=== PATIENT | female | born 1990 | race Caucasian/White ===

== ENCOUNTER 2025-03-11 14:42 | Emergency (ER) | payer BC, SELFPAY ==
[2025-03-11 14:43] VITALS: BMI 28.1
[2025-03-11 14:51] VITALS: BP 104/66; PULSE 74; RESP 18; TEMP 37.2; O2SAT 97
--- NOTE | 2025-03-11 14:57 | XR_ITS ---
Examination: CT brain head without contrast. 2-D sagittal coronal reconstructions Date and time of exam:March 11, 2025 1516 hours INDICATIONS: Facial paresthesias and numbness today CTDI: vol (mGy):50.7 DLP: (mGycm):982 Technique: Multiple CT axial sections of the brain have been obtained, 5 mm slice thickness. Contrast has not been administered. 2-D sagittal, coronal reconstructions have been obtained Low dose protocols were performed. One or more of the following dose reduction techniques were used; automated exposure control, adjustment of the mA and/or KV according to patient size, use of iterative reconstruction technique. Findings: No significant ventricular enlargement. Intra-axial or extra-axial hemorrhage density is not seen. No mass effect or midline shift Basal cisterns are not remarkable. Fourth ventricle is midline. Cranial vault intact. Impression: Negative for acute hemorrhage, mass effect or midline shift As clinically warranted, brain MRI without contrast follow-up would best assess for demyelinating disease, acute ischemic change
--- NOTE | 2025-03-11 14:58 | PD.EDNEURO ---
Neuro Symptoms Deficit-RME/HPI General Chief Complaint: Neuro Symptoms/Deficit Stated Complaint: LEFT SIDE OF FACE NUMBNESS AND PAIN AT 1045 Time Seen by Provider: 03/11/25 14:56 Source: patient Arrival date/time: 03/11/25 14:42 Limitations: no limitations RME / HPI RME / HPI Narrative: Patient is a 34-year-old female with her today stating she developed lip numbness and tingling mostly all along the left side. She states this has happened to her before when she consumes blueberries but has not had any blueberries recently. She denies any chronic medical illness including no diabetes, hypertension, thyroid disorder. Denies any falls or injuries. She has no difficulty with mentation, vision changes, and no dysphagia. She has no unilateral weakness in her extremities. No distal paresthesias. She states her symptoms started at 1045 this morning. She has no other acute complaints. Related Data Previous Rx's ?Medication ?Instructions ?Recorded prednisone 50 mg tablet 50 mg PO QDAY 5 days #5 tabs 03/11/25 valacyclovir 1 gram tablet 1,000 mg PO Q8H #20 tabs 03/11/25 (Valtrex) Allergies Allergy/AdvReac Type Severity Reaction Status Date / Time No Known Allergies Allergy Verified 03/11/25 14:45 Review of Systems Review of Systems Systems Reviewed: All systems reviewed, normal except as documented ED Exam General Limitations: Present no limitations General appearance: Present alert and in no apparent distress Head Head exam: Present atraumatic Eye Eye exam: Present normal appearance, PERRL and EOMI ENT ENT exam: Present normal exam, normal oropharynx and mucous membranes moist Neck Neck exam: Present normal inspection, full ROM and trachea midline Chest Chest inspection: Present normal inspection and symmetric chest wall rise Respiratory Respiratory exam: Present normal lung sounds bilaterally Cardiovascular Cardiovascular exam: Present regular rate, normal rhythm and normal heart sounds Abdominal Exam Abdominal exam: Present soft and normal bowel sounds Extremities Exam Extremities exam: Present normal inspection and full ROM Back Exam Back exam: Present normal inspection and full ROM Neurological Exam Neurological exam: Present alert, oriented X3 and CN II-XII intact Psychiatric Psychiatric exam: Present normal affect and normal mood Skin Skin exam: Present warm, dry, intact and normal color Course Quality Measures none Orders Category Date Time Status CT head/brain wo con Stat Exams 03/11/25 14:57 Completed CBC Stat Lab 03/11/25 15:10 Completed CMP [Comprehensive Metabolic Panel] Stat Lab 03/11/25 15:10 Completed HCG,Qualitative Serum Stat Lab 03/11/25 15:10 Completed Acyclovir [Zovirax] Med 03/11/25 14:57 Discontinued 800 mg PO X1 ONE predniSONE Med 03/11/25 14:57 Discontinued 50 mg PO X1 ONE Vital Signs Vital signs: Vital Signs Temperature 99 F 03/11/25 14:51 Pulse Rate 74 03/11/25 14:51 Respiratory Rate 18 03/11/25 14:51 Blood Pressure 104/66 03/11/25 14:51 Pulse Oximetry (%) 97 03/11/25 14:51 Oxygen Delivery Method Room Air 03/11/25 14:51 Neuro Symptoms / Deficit MDM Narrative MDM Narrative:: Patient is a 34-year-old female with her today stating she developed lip numbness and tingling mostly all along the left side. She states this has happened to her before when she consumes blueberries but has not had any blueberries recently. She denies any chronic medical illness including no diabetes, hypertension, thyroid disorder. Denies any falls or injuries. She has no difficulty with mentation, vision changes, and no dysphagia. She has no unilateral weakness in her extremities. No distal paresthesias. She states her symptoms started at 1045 this morning. She has no other acute complaints. On exam, patient is nontoxic-appearing in no visible signs of distress. Cranials 2-12 are grossly intact on exam. Workup was initiated. We will also cover for possible Snider's palsy. CBC, CMP, and not has CT head is unremarkable. Patient was reassessed and her test results were discussed. Patient states she is feeling much better at this time. We discussed possible allergic reaction versus Snider's palsy. Patient will be discharged with a prescription of valacyclovir and prednisone. She agrees to take the medications, continue monitor symptoms, and return as needed for any worsening emergent changes. Patient data External records reviewed:: [facility] previous records Clinical information provided by:: patient Social determinants that could affect healthcare access:: none Patient has the following chronic illnesses:: n/a How is presenting disease/condition affected by chronic disease/condition?: no chronic disease Evaluation data The following diagnostics were reviewed and interpreted by me:: lab results and radiology exam(s) Lab and/or radiology exams considered but not ordered:: n/a Interpretation Summary: Unremarkable workup Medications / Prescriptions Medications or Prescriptions considered but not ordered:: n/a Medication administrations:: Medication Administration History Discontinued Medications Acyclovir (Acyclovir 800 Mg Tablet) 800 mg PO X1 ONE Stop: 03/11/25 14:58 Last Admin: 03/11/25 15:05 Dose: 800 mg Documented By: MITCHEL Prednisone (Prednisone 20 Mg Tablet) 50 mg PO X1 ONE Stop: 03/11/25 14:58 Last Admin: 03/11/25 15:05 Dose: 50 mg Documented By: MITCHEL see above Consultations Consultation(s) initiated? (list below): No Diagnosis Neuro Differential Diagnosis: peripheral neuropathy, cerebrovascular accident and transient cerebral ischemia Most likely diagnosis given after review of the tests above:: Snider's palsy versus allergic reaction Admission Indicated Admission indicated?: not indicated Admission Request Was there a request for admission?: No Disposition Plan Disposition Plan: Discharge Discharge Attestation Discharge Attestation: The patient and all family members were given an opportunity to ask questions and understood the discharge instructions. Discharge instructions specifically effects, indications for sooner follow up or return to the emergency department, and the expected course of current diagnosis. Patient condition: Stable Discharge Plan Plan Patient Disposition: HOME (Self Care) Patient condition on transfer: Stable Prescriptions/Referrals Prescriptions/Med Rec: New valacyclovir [Valtrex] 1 gram tablet 1,000 mg PO Q8H Qty: 20 0RF prednisone 50 mg tablet 50 mg PO QDAY 5 Days Qty: 5 0RF Referrals: No Primary/Family,Physician [Primary Care Provider] - In 1 week Problem List Clinical Impression: Facial paresthesia Patient/Caregiver Discharge Instructions Education Materials: ED Paraesthesias Additional Instructions: -Use the provided medications as prescribed. -Follow up with primary doctor. -Return here as needed for any emergent changes. Print Language: Chinese Stand Alone Forms: Princess Award Info., Patient Portal Info Letter
[2025-03-11] MEDS: ACYCLOVIR 800 MG TABLET PO (15:05)
[2025-03-11 15:33] LABS: Basophils # (Auto) 0.1 Thou/mm3 (0.0-0.2); Basophils % (Auto) 1 % (0-2.5); Eosinophils # (Auto) 0.1 Thou/mm3 (0.0-0.5); Eosinophils % (Auto) 1 % (0-10); Hematocrit 41.4 % (36.0-46.0); Hemoglobin 13.8 g/dL (12.0-16.0); Immature Granulocytes Auto 0.02 Thou/mm3 (0.00-0.00); Lymphocytes # (Auto) 3.0 Thou/mm3 (1.0-4.8); Lymphocytes % (Auto) 32 % (10-50); Mean Corpuscular HGB Conc 33.3 g/dl (31.0-37.0); Mean Corpuscular Hemoglobin 30.3 pg (25.0-35.0); Mean Corpuscular Volume 91 fL (80-100); Monocytes # (Auto) 0.5 Thou/mm3 (0.0-0.8); Monocytes % (Auto) 5 % (0-12); Neutrophils # (Auto) 5.6 Thou/mm3 (1.8-7.7); Neutrophils % (Auto) 61 % (37-80); Nucleated Red Blood Cell # 0.00 Thou/mm3 (0.00-0.00); Nucleated Red Blood Cell % 0 /100 WBC (0); Platelet Count 190 Thou/mm3 (140-440); RDW Standard Deviation 46.5 fL (36.4-46.3); Red Blood Count 4.55 Miln/mm3 (4.00-5.20); White Blood Count 9.3 Thou/mm3 (3.6-11.0)
[2025-03-11 15:55] LABS: Alanine Aminotransferase 15 U/L (10-49); Albumin, Serum 4.7 gm/dL (3.5-5.0); Albumin/Globulin Ratio 2.1 (1.2-2.2); Alkaline Phosphatase 69 U/L (46-116); Anion Gap 8 (7-16); Aspartate Amino Transferase 24 U/L (0-34); BUN/Creatinine Ratio 13 Ratio (12-20); Bilirubin,Total 0.3 mg/dL (0.3-1.2); Blood Urea Nitrogen 10 mg/dL (9-23); Calcium 10.2 mg/dL (8.3-10.6); Calcium (Corrected) 10.2 mg/dL (8.5-10.1); Carbon Dioxide 26.7 mMol/L (20.0-31.0); Chloride 106 mMol/L (98-107); Creatinine (Component) 0.8 mg/dL (0.6-1.3); Estimated Creatinine Clearance 106.8 mL/min (>60); Globulin 2.2 gm/dL (2.3-3.5); Glucose 100 mg/dL (74-106); Osmolality,Calculated 280 (275-295); Potassium 3.8 mMol/L (3.4-5.1); Sodium 141 mMol/L (136-145); Total Protein 6.9 gm/dL (5.7-8.2); eGFR > 60 See Note
[2025-03-11 15:58] LABS: HCG,Qualitative Serum Negative
== END 2025-03-11 17:05 | disposition home or self-care (01) ==
PROVIDERS: Physician Assistant Medical; Emergency Provider Emergency Medicine
DX: R20.2 Paresthesia of skin (principal); R20.0 Anesthesia of skin
CPT/HCPCS: 36415; 70450; 80053; 84703; 85025; 99283; J7512; A9270

== ENCOUNTER → 2025-03-19 | Outpatient (CLI) | payer BC, SELFPAY ==
[2025-03-25 05:06] LABS: Lyme Antibody Screen <0.90 INDEX
== END | disposition home or self-care (01) ==
PROVIDERS: PCP Family Medicine; Referring Provider Family Medicine; Visit Provider Family Medicine
DX: G51.0 Bell's palsy (principal)
CPT/HCPCS: 36415; 86618